=== PATIENT | male | born 1975 | race Caucasian/White ===

== ENCOUNTER 2017-07-23 20:01 | Emergency (ER) | payer MEDICAID ==
[~2017-07-23] VITALS: Ht 170.2 cm; Wt 65.8 kg
[2017-07-23 20:47] LABS: BASOPHILS % (AUTO) 0.1 % (0.0-2.0); EOSINOPHILS # (AUTO) 0.6 K/uL (0.0-0.7); EOSINOPHILS % (AUTO) 8.2 % (0.0-7.0); HEMATOCRIT 38.6 % (36.7-47.1); HEMOGLOBIN 12.6 g/dL (12.5-16.3); LYMPHOCYTES # (AUTO) 2.2 K/uL (20.0-40.0); LYMPHOCYTES % (AUTO) 30.2 % (20.5-51.5); MEAN CORPUSCULAR HEMOGLOBIN 27.7 uug (23.8-33.4); MEAN CORPUSCULAR HGB CONC 33 g/dL (32.5-36.3); MONOCYTES # (AUTO) 0.7 K/uL (2.0-10.0); MONOCYTES % (AUTO) 9.8 % (0.0-11.0); NEUTROPHILS # (AUTO) 3.7 K/uL (1.8-8.9); NEUTROPHILS % (AUTO) 51.7 % (38.5-71.5); PLATELET COUNT (AUTO) 434 K/uL (152-348); RED BLOOD CELL COUNT(AUTO) 4.54 MIL/uL (4.06-5.63); WHITE BLOOD COUNT (AUTO) 7.2 K/uL (3.6-10.2)
[2017-07-23 20:55] LABS: CARBON DIOXIDE 27 mmol/L (21-32); CHLORIDE 98 mmol/L (98-107); CREATININE 0.8 mg/dL (0.6-1.3); GLUCOSE 104 mg/dL (74-106); POTASSIUM 3.6 mmol/L (3.5-5.1); UREA NITROGEN, BLOOD 6 mg/dL (7-18)
[2017-07-23 20:56] LABS: ETHANOL 282 MG/DL (0-0)
[2017-07-23 21:01] LABS: ALANINE AMINOTRANSFERASE 33 U/L (16-63); ALKALINE PHOSPHATASE 69 U/L (50-136); ASPARTATE AMINOTRANSFERASE 38 U/L (15-37); BILIRUBIN,DIRECT 0.1 mg/dL (0.0-0.2); BILIRUBIN,TOTAL 0.2 mg/dL (0.2-1.0); TOTAL PROTEIN, SERUM 7.4 g/dL (6.4-8.2)
[2017-07-23 21:02] LABS: ACETAMINOPHEN < 2.0 ug/mL (10-30)
[2017-07-23 21:23] LABS: *BILIRUBIN,URIN NEGATIVE (NEGATIVE); *BLOOD, URINE Trace-intact (NEGATIVE); *CLARITY,URINE CLEAR (CLEAR); *COLOR,URINE YELLOW (YELLOW); *KETONES,URINE NEGATIVE (NEGATIVE); *PROTEIN,URINE NEGATIVE (NEGATIVE); *UROBILINOGEN,URINE 0.2 E.U./dl (NORMAL); LEUKOCYTE ESTERASE ,URINE NEGATIVE (NEGATIVE); NITRITE, URINE NEGATIVE (NEGATIVE); PH,URINE 6.5 (5.0-8.0); UGLUCOSE NEGATIVE (NEGATIVE)
[2017-07-23 21:25] LABS: *AMPHETAMINE, URINE NEGATIVE (NEGATIVE); *BARBITURATE, URINE NEGATIVE (NEGATIVE); *CANNABINOID, URINE POSITIVE (NEGATIVE); *COCCAINE, URINE NEGATIVE (NEGATIVE); *OPIATE, URINE NEGATIVE (NEGATIVE); *PHENCYCLIDINE SCREEN,URINE NEGATIVE (NEGATIVE)
[2017-07-23 21:27] LABS: BACTERIA,URINE NONE SEEN /HPF (NONE SEEN); RBC,URINE 0-3 /HPF (0-3); SQUAMOUS EPITHELIAL CELL,UR FEW /HPF (NONE SEEN); WBC,URINE 0-3 /HPF (0-3)
--- NOTE | 2017-07-23 23:00 | NUR ---
Patient is resting comfortably in bed with eyes closed
--- NOTE | 2017-07-24 00:13 | NUR ---
Patient is resting comfortably in bed with eyes closed
--- NOTE | 2017-07-24 02:31 | NUR ---
Patient is resting comfortably in bed with eyes closed
--- NOTE | 2017-07-24 04:29 | NUR ---
Patient is resting comfortably in bed with eyes closed
--- NOTE | 2017-07-24 06:15 | NUR ---
Patient is resting comfortably in bed with eyes closed
--- NOTE | 2017-07-24 06:42 | NUR ---
PEDRO spoke with patient who voiced vague SI complaint with no specific plan. Patient states no HI at this time. Patient requested water which was provided.
--- NOTE | 2017-07-24 06:51 | NUR ---
Call placed to Peter Ramirez LCSW, for PET evaluation. ETA 90 min.
--- NOTE | 2017-07-24 07:22 | NUR ---
PATIENT IS SLEEPING BUT AROUSES EASILY.
--- NOTE | 2017-07-24 08:01 | NUR ---
PATIENT IS SLEEPY BUT AROUSES EASY. WAITING FOR [facility] TO ARRIVE.
--- NOTE | 2017-07-24 08:46 | NUR ---
[facility] POST HERE SPEAKING O PATIENT. PATIENT IS AWAKE AND ALERT.
--- NOTE | 2017-07-24 09:07 | NUR ---
PATIENT IS EATING BREAKFAST BEFOR HE LEAVES. HE IS NOT SUICIDAL AT THIS TIME. HE WANTS TO GO TO A CARE HOME WHICH THE HOSPITAL WILL PROVIDE TRANSPORTATION TO THE CARE HOME THAT [facility] RECOMENDS.
--- NOTE | 2017-07-24 09:26 | NUR ---
[facility] VOUCHER OBTAINED FOR PATIENT TO GO TO DESIGNATED ADDRESS. PATIENT STATES HE UNDERSTANDS. I CALLED. DC AND FOLLOW UP INSTRUCTIONS GIVEN AND EXPLAINED TO PATIENT WHO STATES HE UNDERSTANDS ALL INSTRUCTIONS.
[2017-07-24 09:27] VITALS: BP 118/79
== END 2017-07-24 09:28 | disposition home or self-care (01) ==
LOC: ER 20:04
DX: F10.129 Alcohol abuse with intoxication, unspecified (principal); Z88.0 Allergy status to penicillin; Z59.0 Homelessness
CPT/HCPCS: 36415; 70030-TC; 71045; 80307; 85025; 93005; A4663; C1758; G0480; G0480-TC